=== PATIENT | female | born 1990 | race Caucasian/White ===

== ENCOUNTER 2019-11-23 02:54 | Inpatient (IN) | payer OTHER ==
[~2019-11-23] VITALS: Ht 160 cm; Wt 74.1 kg
[2019-11-23 03:11] VITALS: BP 119/78
[2019-11-23] MEDS ORDERED: METOPROLOL 1 MG/ML, 5ML IV PRN (03:30)
[2019-11-23] MEDS ORDERED: HYDROmorphone 2 MG/ML, 1ML IVPush PRN (03:30)
[2019-11-23] MEDS ORDERED: LABETALOL 5MG/ML, 20ML IV PRN (03:30)
[2019-11-23] MEDS ORDERED: ONDANSETRON 2MG/ML, 2ML IVPush PRN (03:30)
[2019-11-23] MEDS ORDERED: MIDAZOLAM 1 MG/ML, 2ML IV PRN (03:30)
[2019-11-23] MEDS ORDERED: PROMETHAZINE 25 MG/ML, 1ML IV PRN (03:30)
[2019-11-23] MEDS ORDERED: ALBUTEROL SULFATE 2.5 MG/3 ML NPPB PRN (03:30)
[2019-11-23] MEDS ORDERED: HYDROcodone/APAP 7.5-325MG/15ML UDC PO PRN (03:30)
[2019-11-23] MEDS ORDERED: EPHEDRINE 50 MG/ML, 1ML IVPush PRN (03:30)
[2019-11-23] MEDS ORDERED: FENTANYL PF 100 MCG/2ML IV PRN (03:30)
[2019-11-23] MEDS ORDERED: OXYcodone 5 MG/5 ML ORAL.SOL UDC PO PRN (03:30)
[2019-11-23] MEDS ORDERED: MEPERIDINE/PF 25MG/0.5ML IVPush PRN (03:30)
[2019-11-23] MEDS ORDERED: hydrALAzine 20 MG/ML, 1ML IV PRN (03:30)
[2019-11-23] MEDS ORDERED: PREN1TAB79 PO (03:34)
[2019-11-23] MEDS ORDERED: L.AC1CAP6 PO (03:34)
[2019-11-23] MEDS ORDERED: FAMO-79 PO (03:34)
[2019-11-23] MEDS ORDERED: METOCLOPRAMIDE 5 MG/ML, 2ML ONE (03:49)
[2019-11-23] MEDS ORDERED: NEWBORN KIT ONE (03:49)
[2019-11-23] MEDS ORDERED: OXYTOCIN 30U/ 0.9% NaCL 500ML 500 ML ONE (03:49)
[2019-11-23] MEDS ORDERED: SODIUM CITRATE/CITRIC ACID 30 ML UDC PO ONE (04:00)
[2019-11-23] MEDS ORDERED: METOCLOPRAMIDE 5 MG/ML, 2ML IV ONE (04:00)
[2019-11-23] MEDS ORDERED: LACTATED RINGERS 1,000 ML IVBOLUS ONE (04:00)
[2019-11-23] MEDS ORDERED: KETOROLAC 30 MG/1 ML ONE (04:07)
[2019-11-23] MEDS ORDERED: CEFAZOLIN 1,000 MG ONE (04:07)
[2019-11-23] MEDS ORDERED: PHENYLEPHRINE 10 MG/ML ONE (04:07)
[2019-11-23] MEDS ORDERED: EPHEDRINE 50 MG/ML, 1ML ONE (04:07)
[2019-11-23] MEDS ORDERED: FENTANYL PF 100 MCG/2ML ONE (04:07)
[2019-11-23] MEDS ORDERED: DEXAMETHASONE 4 MG/ML, 1ML ONE (04:07)
[2019-11-23] MEDS ORDERED: ONDANSETRON 2MG/ML, 2ML ONE (04:07)
[2019-11-23] MEDS ORDERED: OXYTOCIN 10 UNITS/ML, 1ML ONE (04:07)
[2019-11-23 04:13] LABS: BASOPHILS % (AUTO) 1 % (0-1); EOSINOPHILS % (AUTO) 1 % (1-7); LYMPHOCYTES % (AUTO) 18 % (22-44); MEAN CORPUSCULAR HEMOGLOBIN 28.5 pg (27.0-34.8); MEAN CORPUSCULAR HGB CONC 33.3 g/dL (32.4-35.8); MEAN PLATELET VOLUME 7.6 fL (7.4-10.4); MONOCYTES % (AUTO) 6 % (2-9); NEUTROPHILS % (AUTO) 76 % (42-75); PLATELET COUNT 256 x10^3/uL (130-400); RED BLOOD COUNT 4.62 x10^6/uL (3.82-5.3)
[2019-11-23 04:14] LABS: MD NO
[2019-11-23] MEDS ORDERED: OXYcodone/APAP 5/325MG TABLET PO PRN (04:30)
[2019-11-23] MEDS ORDERED: ONDANSETRON 2MG/ML, 2ML IV PRN (04:30)
[2019-11-23] MEDS ORDERED: MISOPROSTOL 200 MCG TABLET PR PRN (04:30)
[2019-11-23] MEDS ORDERED: CARBOPROST TROMETHAMINE 250 MCG/ML, 1ML IM PRN (04:30)
[2019-11-23] MEDS ORDERED: METHYLERGONOVINE 0.2 MG/ML IM PRN (04:30)
[2019-11-23] MEDS: LACTATED RINGERS 1,000 ML IV SCH ×5 (04:30→19:09)
[2019-11-23] MEDS ORDERED: HYDROmorphone 2 MG/ML, 1ML ONE (05:17)
[2019-11-23] MEDS ORDERED: MEPERIDINE/PF 50 MG/ML ONE (06:24)
[2019-11-23] MEDS: OXYTOCIN 30U/ 0.9% NaCL 500ML 500 ML IV SCH ×2 (06:29→14:30)
[2019-11-23] MEDS ORDERED: OXYcodone 5 MG/5 ML ORAL.SOL UDC ONE (07:58)
[2019-11-23 08:15] VITALS: BP 123/72
[2019-11-23] MEDS: SIMETHICONE 80 MG CHEW TAB PO PRN ×3 (09:58→23:37)
[2019-11-23] MEDS: ACETAMINOPHEN 325 MG TABLET PO PRN (09:58)
[2019-11-23] MEDS ORDERED: MISOPROSTOL 200 MCG TABLET ONE (11:32)
[2019-11-23] MEDS: OXYcodone IR 5MG TABLET PO PRN ×3 (11:32→20:18)
[2019-11-23 12:00] VITALS: BP 123/76
[2019-11-23] MEDS: KETOROLAC 30 MG/1 ML IV SCH ×2 (12:45→18:46)
[2019-11-23 14:51] LABS: BASOPHILS % (AUTO) 0 % (0-1); EOSINOPHILS % (AUTO) 0 % (1-7); LYMPHOCYTES % (AUTO) 5 % (22-44); MEAN CORPUSCULAR HEMOGLOBIN 28.3 pg (27.0-34.8); MEAN PLATELET VOLUME 7.9 fL (7.4-10.4); MONOCYTES % (AUTO) 2 % (2-9); NEUTROPHILS % (AUTO) 93 % (42-75); PLATELET COUNT 241 x10^3/uL (130-400); RED BLOOD COUNT 4.31 x10^6/uL (3.82-5.3); RED CELL DISTRIBUTION WIDTH 14.3 % (9.6-15.2)
[2019-11-23 15:42] LABS: MD SCAN
[2019-11-23 16:00] VITALS: BP 127/78
[2019-11-23] MEDS: DOCUSATE 100 MG CAPSULE PO PRN (17:02)
[2019-11-23] MEDS: PRENATAL VIT/IRON/FA 1 EACH TABLET PO SCH (17:02)
[2019-11-23 20:00] VITALS: BP 129/82
[2019-11-23 23:40] VITALS: BP 127/79
[2019-11-24] MEDS: OXYcodone IR 5MG TABLET PO PRN ×6 (00:28→20:36)
[2019-11-24] MEDS: KETOROLAC 30 MG/1 ML IV SCH ×4 (00:28→18:45)
[2019-11-24] MEDS: OXYTOCIN 30U/ 0.9% NaCL 500ML 500 ML IV SCH ×3 (00:30→20:30)
[2019-11-24] MEDS: LACTATED RINGERS 1,000 ML IV SCH ×6 (00:30→20:30)
[2019-11-24] MEDS: ACETAMINOPHEN 325 MG TABLET PO PRN (04:32)
[2019-11-24 04:36] VITALS: BP 118/75
[2019-11-24 07:00] VITALS: BP 130/84
[2019-11-24] MEDS: SIMETHICONE 80 MG CHEW TAB PO PRN ×2 (07:44→16:44)
[2019-11-24] MEDS: DOCUSATE 100 MG CAPSULE PO PRN ×2 (08:33→18:34)
[2019-11-24] MEDS: PRENATAL VIT/IRON/FA 1 EACH TABLET PO SCH (08:33)
[2019-11-24] MEDS: IBUPROFEN 600 MG TABLET PO PRN (18:34)
[2019-11-24 19:10] VITALS: BP 117/73
[2019-11-25] MEDS: IBUPROFEN 600 MG TABLET PO PRN ×3 (00:37→11:56)
[2019-11-25] MEDS: KETOROLAC 30 MG/1 ML IV SCH ×2 (00:38→05:52)
[2019-11-25] MEDS: OXYcodone IR 5MG TABLET PO PRN ×3 (00:38→08:47)
[2019-11-25] MEDS: LACTATED RINGERS 1,000 ML IV SCH ×2 (04:17→05:52)
[2019-11-25] MEDS: SIMETHICONE 80 MG CHEW TAB PO PRN (04:44)
[2019-11-25] MEDS: OXYTOCIN 30U/ 0.9% NaCL 500ML 500 ML IV SCH (05:52)
[2019-11-25] MEDS: PRENATAL VIT/IRON/FA 1 EACH TABLET PO SCH (08:46)
[2019-11-25] MEDS: DOCUSATE 100 MG CAPSULE PO PRN (08:46)
[2019-11-25 08:50] VITALS: BP 119/81
[2019-11-25] MEDS ORDERED: IBUP-1222 PO (10:31)
[2019-11-25] MEDS ORDERED: DOCU-131 PO (10:31)
[2019-11-25] MEDS ORDERED: OXYC10TA6 PO (10:32)
== END 2019-11-25 12:13 | disposition home or self-care (01) | DRG 788 ==
LOC: LDOP 02:54 → LDIP 03:42 → 2NW 08:41
PROVIDERS: ADMIT Obstetrics & Gynecology; ATTEND Obstetrics & Gynecology
PROC: 10D00Z1 Extraction of Products of Conception, Low, Open Approach (ICD-10-PCS; principal; 2019-11-23)
DX: O75.89 Other specified complications of labor and delivery (principal); Z20.828 Contact with and (suspected) exposure to other viral communicable diseases; Z37.0 Single live birth; Z3A.39 39 weeks gestation of pregnancy; N94.2 Vaginismus
CPT/HCPCS: 36415; 84112; 85025; 86592; 86850; 86900; 87635; G0378; J0690; J1100; J1170; J1885; J2405; J3010; J2370; J2590; J2765; J7120